=== PATIENT | born 1970 | race Caucasian/White ===

== ENCOUNTER 2025-07-25 12:31 | Emergency (ER) | payer OTHER ==
[2025-07-25 13:11] LABS: #Basophils Less than 0.03 10x3/uL (0.0-0.2); #Eosinophils 0.20 10x3/uL (0.0-0.7); #Monocytes 0.44 10x3/uL (0.11-0.59); #Neutrophils 3.20 10x3/uL (1.40-6.50); %Basophils 0.4 % (0.0-1.0); %Eosinophils 3.6 % (0.0-10.0); %Lymphocytes 29.8 % (21.0-51.0); %Monocytes 8.0 % (0.0-10.0); %Neutrophils 58.0 % (42.0-75.0); Hematocrit 46.0 % (36.0-52.0); Hemoglobin 15.4 g/dL (12.0-18.0); Mean Corpuscular Hemoglobin 29.3 pg (27.0-31.0); Mean Corpuscular Volume 87.6 fL (78.0-98.0); Platelet Count 195 10x3/uL (130-400); Red Blood Cell (RBC) Count 5.25 mill/uL (4.20-6.10); White Blood Cell (WBC) Count 5.51 10x3/uL (4.8-10.8)
[2025-07-25 13:37] LABS: ALT (SGPT) 22 U/L (F: <34 M: <45); AST (SGOT) 17 U/L (11-34); Albumin 4.2 g/dL (3.1-4.5); Alkaline Phosphatase 70 U/L (40-110); Anion Gap 12 mmol/L (10-20); BUN (Urea Nitrogen) 8 mg/dL (8.4-25.7); Bilirubin, Total 0.7 mg/dL (0.3-1.2); Calcium 9.4 mg/dL (7.8-10.44); Carbon Dioxide 22 mmol/L (22-29); Chloride 108 mmol/L (98-107); Globulin 2.8 g/dL (2.4-3.5); Glucose 116 mg/dL (70-105); Potassium 4.1 mmol/L (3.5-5.1); Sodium 138 mmol/L (136-145)
[2025-07-25] MEDS ORDERED: Vancomycin 1 GM/200 ML (PREMIX FOIL) BAG ONE (20:06)
[2025-07-26 13:17] LABS: Bacteria/HPF None Seen HPF (None Seen); CAUTI Indications for Culture Dysuria,urgency,freq; Glucose, Urine (Dipstick) Normal (Negative); Leukocyte Negative Leu/uL (Negative); Protein, Urine (Dipstick) Negative (Neg-Trace); RBC/HPF 0-3 HPF (0-3); Specific Gravity, Urine 1.005 (1.002-1.036); WBC/HPF None Seen HPF (0-3)
[2025-07-26 13:35] LABS: Urine Culture Reflex No No
== END 2025-07-25 21:46 | disposition short-term general hospital (02) ==
LOC: ERS 12:31
DX: J01.00 Acute maxillary sinusitis, unspecified (principal); I10 Essential (primary) hypertension
CPT/HCPCS: 36416; 70450; 80053; 81001; 83605; 84484; 85025; 86850; 86900; 86901; 93005; 96374; 96375; J2543; J3372